=== PATIENT | female | born 1950 | race Caucasian/White ===

== ENCOUNTER 2017-02-07 05:34 | Inpatient (IN) ==
[2017-02-07] MEDS ORDERED: VECURONIUM 10 MG VIAL IV STA (05:46)
[2017-02-07] MEDS ORDERED: ETOMIDATE 20 MG/10 ML VIAL IV STA (05:47)
[2017-02-07] MEDS ORDERED: SUCCINYLCHOLINE 200 MG/10 ML VIAL IV STA (05:47)
[2017-02-07] MEDS ORDERED: SODIUM CHLORIDE 0.9% 2,000 ML IV STA (05:51)
[2017-02-07 06:00] LABS: Basophils % 0.1 % (0.0-0.8); Hematocrit 27.2 VOL% (35.7-47.0); Hemoglobin 9.3 GM/DL (12.0-16.0); Immature Granulocytes % 0.6 %; Lymphocytes # 0.2 10*3/uL (1.4-4.0); Mean Corpuscular HGB Conc 34.2 GM/DL (32-36); Mean Corpuscular Hemoglobin 29 PG (27-34); Mean Corpuscular Volume 84.2 FL (87-102); Mean Platelet Volume 10.6 FL (9.6-12.0); Monocytes # 0.6 10*3/uL (0.11-0.8); Monocytes % 3.7 % (1.7-12.7); Neutrophils # 15.7 10*3/uL (1.4-7.4); Neutrophils % 94.6 % (38.7-73.9); Platelet Count 455 T/CUMM (130-400); Red Blood Count 3.23 MC/CUMM (3.8-5.5); Red Cell Distribution Width 14.8 % (9.3-17.3); White Blood Count 16.5 T/CUMM (4-12)
[2017-02-07] MEDS ORDERED: SODIUM CHLORIDE 0.9% 1,000 ML IV STA (06:09)
[2017-02-07] MEDS ORDERED: NOREPINEPHRINE 4 MG/4 ML VIAL IV ONE (06:14)
[2017-02-07] MEDS ORDERED: EPINEPHrine 1 MG/10 ML SYRINGE ONE (06:14)
[2017-02-07 06:23] LABS: Lactic Acid 3.8 MMOL/L (0.4-2.0)
[2017-02-07 06:24] LABS: Alanine Aminotransferase 22 U/L (13-56); Albumin 3.1 G/DL (3.4-5.0); Alkaline Phosphatase 66 U/L (45-117); Aspartate Amino Transferase 29 U/L (0-37); Bilirubin,Total < 0.39 MG/DL (0.2-1.0); Glucose 164 MG/DL (74-106); Osmolality,Calculated 344.7 MOS/KG (273-304); Sodium 131 MMOL/L (136-145)
[2017-02-07 06:26] LABS: Band Neutrophils 3 % (0-10); Lymphocytes 1 % (20-55); Segmented Neutrophils 92 % (50-85); Total Cells Counted 100
[2017-02-07] MEDS ORDERED: EPINEPHrine 1 MG/10 ML SYRINGE IV STA (06:28)
[2017-02-07 06:29] LABS: Blood Urea Nitrogen 234 MG/DL (7-18)
[2017-02-07] MEDS ORDERED: MAGNESIUM SULFATE 1 GM/2 ML VIAL IV ONE (06:29)
[2017-02-07] MEDS ORDERED: AMIODARONE 150 MG/3 ML VIAL IV STA (06:29)
[2017-02-07] MEDS ORDERED: PIPERACILLIN/TAZOBACTAM 3,375 MG in SODIUM CHLORIDE 0.9% 100 ML IV STA (06:29)
[2017-02-07] MEDS ORDERED: INSULIN REGULAR 100 UNIT/ML ONE (06:30)
[2017-02-07] MEDS ORDERED: DEXTROSE 50% 25 GM/50 ML VIAL IV STA (06:30)
[2017-02-07] MEDS ORDERED: ALBUTEROL 2.5 MG/3 ML NEB RESP TX STA (06:30)
[2017-02-07] MEDS ORDERED: SODIUM BICARBONATE 50 MEQ/50 ML VIAL IV STA ×2 (06:30→07:07)
[2017-02-07] MEDS ORDERED: CALCIUM CHLORIDE 1,000 MG/10 ML SYRINGE IV STA (06:31)
[2017-02-07] MEDS ORDERED: ETOMIDATE 20 MG/10 ML VIAL IV ONE (06:36)
[2017-02-07] MEDS ORDERED: VECURONIUM 10 MG VIAL IV ONE (06:37)
[2017-02-07] MEDS ORDERED: INSULIN REGULAR 100 UNIT/ML IV STA (06:37)
[2017-02-07] MEDS ORDERED: SUCCINYLCHOLINE 200 MG/10 ML VIAL ONE (06:38)
[2017-02-07 06:48] LABS: Amorphous Crystals,Urine Occasional /HPF (Few); Apearance,Urine CLOUDY (Clear); Bacteria,Urine Few /HPF (Few); Bilirubin,Urine Negative (Negative); Blood, Urine Small mg/dL (Negative); Glucose,Urine (UA) 50 mg/dL (Negative); Ketones,Urine 5 mg/dL (Negative); Mucus,Urine Occasional /LPF (Occasional); Nitrite,Urine Negative (Negative); Protein,Urine 30 MG/DL; RBC,Urine 6 /HPF (0-4); Squamous Epithelial Cell,Urine Few /HPF (0-10); Urine Specific Gravity 1.018 (1.001-1.035); Urine Urobilinogen < 2.0 EU/DL (0.2-1.0); WBC,Urine 5 /HPF (0-6)
[2017-02-07 06:49] LABS: Urine Color Dark yellow (Yellow)
[2017-02-07 06:55] LABS: ABG Base Excess -24.1 MMOL/L (-2.5-2.5); ABG HCO3 6.6 MMOL/L (20-26); ABG Oxygen Saturation 79.3 % (95-100); ABG PCO2 37.1 MM HG (35-48); ABG PO2 68.6 MM HG (80-95); ABG TCO2 7.4 MMOL/L (23-27)
[2017-02-07] MEDS ORDERED: PIPERACILLIN/TAZOBACTAM 3,375 MG VIAL IV ONE (06:55)
[2017-02-07 06:58] LABS: ABG PH 6.886 (7.35-7.45)
[2017-02-07] MEDS ORDERED: SODIUM BICARBONATE 50 MEQ/50 ML SYRINGE IV ONE ×3 (07:09→16:46)
[2017-02-07] MEDS ORDERED: SODIUM BICARB IV SCH (07:15)
[2017-02-07] MEDS ORDERED: DEXTROSE 5% IV SCH (07:15)
[2017-02-07] MEDS ORDERED: ALBUTEROL 2.5 MG/3 ML NEB RESP TX PRN (08:02)
[2017-02-07] MEDS ORDERED: SODIUM POLYSTYRENE SULFATE 15 GM/60 ML BOTTLE RECTAL STA (08:19)
[2017-02-07] MEDS ORDERED: AMIODARONE INJ 150 MG in DEXTROSE 5% 100 ML IV ONE (08:43)
[2017-02-07] MEDS ORDERED: AMIODARONE INJ 450 MG in DEXTROSE 5% 241 ML IV SCH (09:00)
[2017-02-07] MEDS ORDERED: SODIUM POLYSTYRENE SULFATE 15 GM/60 ML BOTTLE ONE ×2 (09:19)
[2017-02-07 09:36] LABS: Magnesium 1.9 MG/DL (1.8-2.4)
[2017-02-07] MEDS ORDERED: PANTOPRAZOLE 40 MG VIAL IV ONE (09:50)
[2017-02-07] MEDS: PANTOPRAZOLE 40 MG VIAL IV SCH (09:54)
[2017-02-07 09:57] LABS: Free T4 (Free Thyroxine) 0.91 NG/DL (0.76-1.46); Thyroid Stimulating Hormone 0.685 uIU/ml (0.358-3.74)
[2017-02-07] MEDS: NOREPINEPHRINE 16 MG in SODIUM CHLORIDE 0.9% 234 ML IV SCH ×3 (10:21→21:21)
[2017-02-07 10:24] LABS: Calcium 7.9 MG/DL (8.5-10.1); Magnesium 2.6 MG/DL (1.8-2.4); Osmolality,Calculated 356.7 MOS/KG (273-304); Potassium 3.7 MMOL/L (3.5-5.1)
[2017-02-07 10:31] LABS: ABG Base Excess -18.7 MMOL/L (-2.5-2.5); ABG HCO3 10.2 MMOL/L (20-26); ABG Oxygen Saturation 99.5 % (95-100); ABG PCO2 29.6 MM HG (35-48); ABG TCO2 9.3 MMOL/L (23-27)
[2017-02-07 10:34] LABS: ABG PH 7.113 (7.35-7.45)
[2017-02-07] MEDS: ALBUTEROL/IPRATROPIUM 3 ML NEB RESP TX SCH ×4 (10:35→23:53)
[2017-02-07] MEDS: SODIUM CHLORIDE 23.4% CONC INJ 38.5 MEQ, SODIUM BICARB INJ 100 MEQ in STERILE WATER INJ... IV SCH ×3 (11:19→19:04)
[2017-02-07 12:20] LABS: Lactic Acid 2.8 MMOL/L (0.4-2.0)
[2017-02-07 12:23] LABS: Calcium 7.7 MG/DL (8.5-10.1); Magnesium 2.6 MG/DL (1.8-2.4); Osmolality,Calculated 362.8 MOS/KG (273-304); Potassium 3.7 MMOL/L (3.5-5.1)
[2017-02-07 13:17] LABS: Calcium 7.7 MG/DL (8.5-10.1); Potassium 3.7 MMOL/L (3.5-5.1)
[2017-02-07] MEDS: PHENYLEPHRINE INJ 80 MG in SODIUM CHLORIDE 0.9% 242 ML IV SCH (13:17)
[2017-02-07 13:23] LABS: ABG Base Excess -19.1 MMOL/L (-2.5-2.5); ABG Oxygen Saturation 96.3 % (95-100); ABG PCO2 39.4 MM HG (35-48); ABG TCO2 10.5 MMOL/L (23-27)
[2017-02-07 13:28] LABS: ABG PH 7.033 (7.35-7.45)
[2017-02-07] MEDS: FAMOTIDINE 20 MG/2 ML VIAL IV SCH (13:38)
[2017-02-07] MEDS: LACTULOSE 20 GM/30 ML UDCUP PO SCH (13:38)
[2017-02-07] MEDS: THIAMINE 200 MG/2 ML VIAL IV SCH (13:38)
[2017-02-07] MEDS: FLUCONAZOLE INJ 200 MG in PREMIX 1 EACH IV SCH (13:40)
[2017-02-07 15:23] LABS: Hepatitis A Ab IgM Quant 0.16 Index; Hepatitis A Ab IgM Result Negative (Negative); Hepatitis B Core IgM Result Negative (Negative); Hepatitis B Surface Ag Quant < 0.10 Index; Hepatitis B Surface Ag Result Negative (Negative); Hepatitis C Virus Ab Quant 1.45 Index
[2017-02-07] MEDS: AMIODARONE INJ 450 MG in DEXTROSE 5% 241 ML IV SCH (16:05)
[2017-02-07] MEDS ORDERED: DEXTROSE 50% 25 GM/50 ML VIAL IV PRN (16:06)
[2017-02-07] MEDS ORDERED: GLUCAGON 1 MG VIAL IM PRN (16:06)
[2017-02-07] MEDS: PROPOFOL 1,000 MG/100 ML BOTTLE IV SCH (16:42)
[2017-02-07] MEDS ORDERED: SODIUM CHLORIDE 0.9% 1,000 ML IV PRN (16:44)
[2017-02-07] MEDS ORDERED: INSULIN REGULAR 100 UNIT/ML IV ONE (16:48)
[2017-02-07] MEDS ORDERED: SODIUM CHLORIDE 0.9% 1,000 ML IV ONE (16:49)
[2017-02-07] MEDS ORDERED: MAGNESIUM SULF RIDER 2 GM in PREMIX 1 EACH IV PRN (16:57)
[2017-02-07] MEDS ORDERED: INSULIN REGULAR DRIP 100 ML IV SCH (17:00)
[2017-02-07] MEDS: FOLIC ACID INJ 1 MG in SYRINGE 1 EACH IV SCH (17:11)
[2017-02-07 17:27] LABS: ABG Base Excess -11.4 MMOL/L (-2.5-2.5); ABG HCO3 16.5 MMOL/L (20-26); ABG Oxygen Saturation 92.5 % (95-100); ABG PO2 83.1 MM HG (80-95)
[2017-02-07 17:29] LABS: ABG PH 7.164 (7.35-7.45)
[2017-02-07] MEDS ORDERED: INSULIN REGULAR 100 UNIT/ML SUBCUT SCH (18:00)
[2017-02-07] MEDS: SODIUM CHLORIDE 0.9% 1,000 ML IV SCH ×3 (18:30→23:04)
[2017-02-07] MEDS ORDERED: SODIUM CHLORIDE 0.9% 500 ML IV ONE (18:30)
[2017-02-07] MEDS: PIPERACILLIN/TAZOBACTAM 3,375 MG in SODIUM CHLORIDE 0.9% 100 ML IV SCH ×2 (18:34→22:45)
[2017-02-07 20:47] LABS: Calcium 6.7 MG/DL (8.5-10.1)
[2017-02-07 20:54] LABS: Magnesium 2.1 MG/DL (1.8-2.4)
[2017-02-07] MEDS ORDERED: OSELTAMIVIR 30 MG CAPSULE PO SCH (23:00)
[2017-02-07] MEDS: OSELTAMIVIR 6 MG/ML 60 ML/BOTTLE PO SCH (23:01)
[2017-02-07] MEDS ORDERED: POTASSIUM CHLORIDE RIDER 10 MEQ in PREMIX 1 EACH IV PRN (23:17)
[2017-02-08 00:24] LABS: ABG Base Excess -10.8 MMOL/L (-2.5-2.5); ABG HCO3 18.7 MMOL/L (20-26); ABG Oxygen Saturation 78.1 % (95-100); ABG PCO2 65.5 MM HG (35-48); ABG TCO2 20.7 MMOL/L (23-27); Allen Test Positive; Pt O2 Delivery Device Ventilator
[2017-02-08 00:26] LABS: Barbiturates Screen,Urine Negative (Negative); Benzodiazepines Screen,Urine Negative (Negative); Cannabinoid Screen,Urine Negative (Negative); Opiate Screen,Urine Negative (Negative); Phencyclidine Screen,Urine Negative (Negative)
[2017-02-08 00:30] LABS: ABG PH 7.105 (7.35-7.45)
[2017-02-08] MEDS: OSELTAMIVIR 6 MG/ML 60 ML/BOTTLE PO SCH ×4 (01:04→21:24)
[2017-02-08] MEDS: LACTULOSE 20 GM/30 ML UDCUP PO SCH ×3 (01:04→20:29)
[2017-02-08 02:14] LABS: Osmolality,Calculated 349.4 MOS/KG (273-304); Potassium 2.6 MMOL/L (3.5-5.1)
[2017-02-08] MEDS: POTASSIUM CHLORIDE RIDER 20 MEQ in PREMIX 1 EACH IV PRN ×3 (02:18→10:35)
[2017-02-08] MEDS: PROPOFOL 1,000 MG/100 ML BOTTLE IV SCH ×3 (02:18→23:18)
[2017-02-08 02:23] LABS: Calcium 5.8 MG/DL (8.5-10.1)
[2017-02-08] MEDS: ALBUTEROL/IPRATROPIUM 3 ML NEB RESP TX SCH ×6 (02:39→22:22)
[2017-02-08] MEDS: SODIUM CHLORIDE 23.4% CONC INJ 38.5 MEQ, SODIUM BICARB INJ 100 MEQ in STERILE WATER INJ... IV SCH ×3 (02:46→08:13)
[2017-02-08] MEDS: SODIUM CHLORIDE 0.9% 1,000 ML IV SCH (03:09)
[2017-02-08] MEDS ORDERED: CALCIUM GLUCONATE 2,000 MG in SODIUM CHLORIDE 0.9% 100 ML IV ONE (03:15)
[2017-02-08] MEDS ORDERED: POTASSIUM CHLORIDE INJ 40 MEQ in SODIUM CHLORIDE 0.45% 1,000 ML IV SCH (03:30)
[2017-02-08] MEDS: NOREPINEPHRINE 16 MG in SODIUM CHLORIDE 0.9% 234 ML IV SCH ×4 (03:39→23:48)
[2017-02-08 04:12] LABS: ABG Base Excess -5.5 MMOL/L (-2.5-2.5); ABG HCO3 22.5 MMOL/L (20-26); ABG Oxygen Saturation 42.2 % (95-100); ABG PH 7.222 (7.35-7.45); ABG TCO2 24.2 MMOL/L (23-27)
[2017-02-08 04:22] LABS: ABG PO2 22.8 MM HG (80-95)
[2017-02-08] MEDS ORDERED: TERBUTALINE 1 MG/1 ML VIAL SUBCUT ONE (04:24)
[2017-02-08 04:34] LABS: ABG Base Excess -4.6 MMOL/L (-2.5-2.5); ABG HCO3 20.6 MMOL/L (20-26); ABG Oxygen Saturation 99.1 % (95-100); ABG PCO2 40.2 MM HG (35-48); ABG PH 7.328 (7.35-7.45); ABG TCO2 19.1 MMOL/L (23-27)
[2017-02-08 05:29] LABS: INR 1.5; PT Patient Result 15.6 SECS; Partial Thromboplastin Time 39.4 SECS (0-40)
[2017-02-08 05:46] LABS: Basophils % 0.2 % (0.0-0.8); Hematocrit 29.9 VOL% (35.7-47.0); Immature Granulocytes % 0.5 %; Immature Granulocytes Absolute 0.06 #; Lymphocytes # 0.1 10*3/uL (1.4-4.0); Lymphocytes % 0.8 % (21.3-54.2); Mean Corpuscular HGB Conc 35.8 GM/DL (32-36); Mean Corpuscular Hemoglobin 29 PG (27-34); Mean Platelet Volume 11.1 FL (9.6-12.0); Monocytes # 0.7 10*3/uL (0.11-0.8); Monocytes % 5.4 % (1.7-12.7); Neutrophils # 12.4 10*3/uL (1.4-7.4); Neutrophils % 93.1 % (38.7-73.9); Red Blood Count 3.69 MC/CUMM (3.8-5.5); Red Cell Distribution Width 15.3 % (9.3-17.3); White Blood Count 13.3 T/CUMM (4-12)
[2017-02-08 05:50] LABS: Hepatitis C Virus Ab Result Positive (Negative)
[2017-02-08 05:55] LABS: Hemoglobin 10.7 GM/DL (12.0-16.0); Platelet Count 283 T/CUMM (130-400)
[2017-02-08 05:56] LABS: Magnesium 1.4 MG/DL (1.8-2.4); Phosphorous 4.9 MG/DL (2.5-4.9)
[2017-02-08 06:37] LABS: Giant Platelets Few; Hypochromasia 1+; Lymphocytes 1 % (20-55); Ovalocytes Slight; Platelet Estimate Normal; Segmented Neutrophils 93 % (50-85); Total Cells Counted 100
[2017-02-08 06:55] LABS: HIV Antigen/Antibody Result Nonreactive (Nonreactive); Hepatitis B Surface Ag Quant < 0.10 Index; Hepatitis B Surface Ag Result Negative (Negative); Hepatitis C Virus Ab Quant 1.81 Index
[2017-02-08] MEDS: DEXT 5% NACL 0.45% KCL 40 MEQ 40 MEQ/1,000 ML BAG IV SCH ×2 (07:29→09:01)
[2017-02-08] MEDS: AMIODARONE INJ 450 MG in DEXTROSE 5% 241 ML IV SCH (08:12)
[2017-02-08] MEDS: PIPERACILLIN/TAZOBACTAM 3,375 MG in SODIUM CHLORIDE 0.9% 100 ML IV SCH ×2 (08:13→20:29)
[2017-02-08] MEDS: PANTOPRAZOLE 40 MG VIAL IV SCH (08:13)
[2017-02-08] MEDS: THIAMINE 200 MG/2 ML VIAL IV SCH (08:14)
[2017-02-08] MEDS: FOLIC ACID INJ 1 MG in SYRINGE 1 EACH IV SCH (08:14)
[2017-02-08 08:37] LABS: Calcium 6.6 MG/DL (8.5-10.1); Osmolality,Calculated 333.7 MOS/KG (273-304); Potassium 3.2 MMOL/L (3.5-5.1)
[2017-02-08] MEDS: MAGNESIUM SULF RIDER 4 GM in PREMIX 1 EACH IV PRN (09:30)
[2017-02-08] MEDS ORDERED: NOREPINEPHRINE 4 MG/4 ML VIAL IV ONE (09:59)
[2017-02-08] MEDS ORDERED: SODIUM CHLORIDE 23.4% CONC INJ 38.5 MEQ, SODIUM BICARB INJ 50 MEQ in STERILE WATER INJ ... IV SCH (11:00)
[2017-02-08 11:17] LABS: Calcium 6.4 MG/DL (8.5-10.1); Osmolality,Calculated 331.6 MOS/KG (273-304); Potassium 3.8 MMOL/L (3.5-5.1)
[2017-02-08 11:57] LABS: Allen Test Positive; Pt O2 Delivery Device Ventilator
[2017-02-08 12:01] LABS: ABG Base Excess -2.7 MMOL/L (-2.5-2.5); ABG HCO3 22.2 MMOL/L (20-26); ABG Oxygen Saturation 99.5 % (95-100); ABG PCO2 34.2 MM HG (35-48); ABG PH 7.405 (7.35-7.45); ABG TCO2 19.3 MMOL/L (23-27)
[2017-02-08] MEDS: INSULIN GLARGINE 100 UNIT/ML SUBCUT SCH (12:17)
[2017-02-08 12:53] LABS: Lactic Acid 2.1 MMOL/L (0.4-2.0)
[2017-02-08] MEDS ORDERED: FUROSEMIDE 40 MG/4 ML VIAL IV ONE (13:00)
[2017-02-08] MEDS: DESITIN 4OZ/NYSTATIN 15 GRAM MIXTURE PASTE TOP SCH ×2 (13:10→20:29)
[2017-02-08] MEDS: INSULIN REGULAR 100 UNIT/ML SUBCUT SCH ×2 (13:10→18:16)
[2017-02-08] MEDS: FAMOTIDINE 20 MG/2 ML VIAL IV SCH (13:10)
[2017-02-08] MEDS: PHENYLEPHRINE INJ 80 MG in SODIUM CHLORIDE 0.9% 242 ML IV SCH (13:10)
[2017-02-08] MEDS: FLUCONAZOLE INJ 200 MG in PREMIX 1 EACH IV SCH (15:56)
[2017-02-08 16:30] LABS: Calcium 6.5 MG/DL (8.5-10.1); Osmolality,Calculated 326.7 MOS/KG (273-304); Potassium 3.6 MMOL/L (3.5-5.1)
[2017-02-08 16:31] LABS: Magnesium 2.1 MG/DL (1.8-2.4); Phosphorous 3.4 MG/DL (2.5-4.9)
[2017-02-08] MEDS ORDERED: OSELTAMIVIR 30 MG CAPSULE PEG ONE (21:27)
[2017-02-09] MEDS: INSULIN REGULAR 100 UNIT/ML SUBCUT SCH ×4 (00:02→17:13)
[2017-02-09] MEDS: ACETAMINOPHEN 325 MG/10.15 ML UDCUP PO PRN (00:17)
[2017-02-09] MEDS: AMIODARONE INJ 450 MG in DEXTROSE 5% 241 ML IV SCH ×4 (00:18→15:33)
[2017-02-09] MEDS: PHENYLEPHRINE INJ 80 MG in SODIUM CHLORIDE 0.9% 242 ML IV SCH ×2 (01:16→12:53)
[2017-02-09 03:10] LABS: Basophils % 0.1 % (0.0-0.8); Eosinophils % 0.1 % (0.00-10.9); Hematocrit 30.7 VOL% (35.7-47.0); Hemoglobin 11.5 GM/DL (12.0-16.0); Immature Granulocytes % 0.5 %; Immature Granulocytes Absolute 0.09 #; Lymphocytes # 0.7 10*3/uL (1.4-4.0); Lymphocytes % 4.2 % (21.3-54.2); Mean Corpuscular HGB Conc 37.5 GM/DL (32-36); Mean Corpuscular Hemoglobin 30 PG (27-34); Mean Corpuscular Volume 80.6 FL (87-102); Mean Platelet Volume 10.3 FL (9.6-12.0); Monocytes # 2.2 10*3/uL (0.11-0.8); Monocytes % 12.6 % (1.7-12.7); NRBC # 0.03 10*3/uL; Neutrophils # 14.1 10*3/uL (1.4-7.4); Neutrophils % 82.5 % (38.7-73.9); Platelet Count 248 T/CUMM (130-400); Red Blood Count 3.81 MC/CUMM (3.8-5.5); Red Cell Distribution Width 14.9 % (9.3-17.3); White Blood Count 17.1 T/CUMM (4-12)
[2017-02-09 03:35] LABS: Calcium 6.5 MG/DL (8.5-10.1); Osmolality,Calculated 322.7 MOS/KG (273-304); Potassium 3.4 MMOL/L (3.5-5.1)
[2017-02-09 03:36] LABS: Magnesium 1.6 MG/DL (1.8-2.4); Phosphorous 3.4 MG/DL (2.5-4.9)
[2017-02-09] MEDS: ALBUTEROL/IPRATROPIUM 3 ML NEB RESP TX SCH ×6 (03:49→22:18)
[2017-02-09 03:50] LABS: CKMB % 1.1 %
[2017-02-09 03:52] LABS: Troponin I Only 3.81 NG/ML (0.00-0.045)
[2017-02-09 04:02] LABS: Lymphocytes 10 % (20-55); Platelet Estimate Normal; Segmented Neutrophils 87 % (50-85); Total Cells Counted 100
[2017-02-09] MEDS ORDERED: POTASSIUM CHLORIDE 20 MEQ/15 ML UDCUP PER TUBE SCH (04:30)
[2017-02-09] MEDS: PROPOFOL 1,000 MG/100 ML BOTTLE IV SCH ×4 (05:52→20:58)
[2017-02-09] MEDS: NOREPINEPHRINE 16 MG in SODIUM CHLORIDE 0.9% 234 ML IV SCH ×2 (06:02→16:17)
[2017-02-09 06:44] LABS: ABG Base Excess 1.9 MMOL/L (-2.5-2.5); ABG HCO3 26.1 MMOL/L (20-26); ABG Oxygen Saturation 99.4 % (95-100); ABG PCO2 28.6 MM HG (35-48); ABG PH 7.527 (7.35-7.45); ABG TCO2 20.9 MMOL/L (23-27); Allen Test Positive; Pt O2 Delivery Device Ventilator
[2017-02-09 08:23] LABS: Troponin I Only 3.86 NG/ML (0.00-0.045)
[2017-02-09 09:54] LABS: CKMB % 0.7 %
[2017-02-09 09:56] LABS: Troponin I Only 3.61 NG/ML (0.00-0.045)
[2017-02-09] MEDS: FOLIC ACID INJ 1 MG in SYRINGE 1 EACH IV SCH (12:49)
[2017-02-09] MEDS: LACTULOSE 20 GM/30 ML UDCUP PO SCH ×2 (12:49→20:57)
[2017-02-09] MEDS: THIAMINE 200 MG/2 ML VIAL IV SCH (12:49)
[2017-02-09] MEDS: OSELTAMIVIR 6 MG/ML 60 ML/BOTTLE PO SCH ×2 (12:49→22:44)
[2017-02-09] MEDS: DESITIN 4OZ/NYSTATIN 15 GRAM MIXTURE PASTE TOP SCH ×2 (12:49→20:57)
[2017-02-09] MEDS: PIPERACILLIN/TAZOBACTAM 3,375 MG in SODIUM CHLORIDE 0.9% 100 ML IV SCH ×2 (12:49→20:59)
[2017-02-09] MEDS: PANTOPRAZOLE 40 MG VIAL IV SCH (12:49)
[2017-02-09] MEDS: INSULIN GLARGINE 100 UNIT/ML SUBCUT SCH (12:49)
[2017-02-09] MEDS: FAMOTIDINE 20 MG/2 ML VIAL IV SCH (12:53)
[2017-02-09] MEDS ORDERED: POTASSIUM CHLORIDE 20 MEQ TABLET PO ONE (14:31)
[2017-02-09] MEDS: FLUCONAZOLE INJ 200 MG in PREMIX 1 EACH IV SCH (16:15)
[2017-02-09] MEDS: FUROSEMIDE 20 MG/2 ML VIAL IV SCH (16:16)
[2017-02-09] MEDS ORDERED: ENOXAPARIN 30 MG/0.3 ML SYRINGE SUBCUT SCH (21:00)
[2017-02-10] MEDS: INSULIN REGULAR 100 UNIT/ML SUBCUT SCH ×4 (00:09→18:44)
[2017-02-10] MEDS: NOREPINEPHRINE 16 MG in SODIUM CHLORIDE 0.9% 234 ML IV SCH ×3 (00:20→13:55)
[2017-02-10] MEDS: OSELTAMIVIR 30 MG CAPSULE PO SCH ×3 (00:40→22:37)
[2017-02-10 02:52] LABS: ABG Base Excess 6.2 MMOL/L (-2.5-2.5); ABG HCO3 27.6 MMOL/L (20-26); ABG PCO2 29.4 MM HG (35-48); ABG PH 7.591 (7.35-7.45); ABG TCO2 28.5 MMOL/L (23-27); Pt O2 Delivery Device Ventilator
[2017-02-10] MEDS: PROPOFOL 1,000 MG/100 ML BOTTLE IV SCH ×4 (03:22→18:57)
[2017-02-10 03:41] LABS: Calcium 7.5 MG/DL (8.5-10.1); Osmolality,Calculated 320.1 MOS/KG (273-304); Potassium 3.6 MMOL/L (3.5-5.1)
[2017-02-10 03:53] LABS: Basophils # 0.1 10*3/uL (0.0-0.2); Basophils % 0.3 % (0.0-0.8); Eosinophils # 0.2 10*3/uL (0.0-0.87); Eosinophils % 1.1 % (0.00-10.9); Hematocrit 29.4 VOL% (35.7-47.0); Hemoglobin 10.5 GM/DL (12.0-16.0); Immature Granulocytes Absolute 0.16 #; Lymphocytes # 1.2 10*3/uL (1.4-4.0); Lymphocytes % 7.9 % (21.3-54.2); Mean Corpuscular HGB Conc 35.7 GM/DL (32-36); Mean Corpuscular Hemoglobin 30 PG (27-34); Mean Corpuscular Volume 83.1 FL (87-102); Monocytes # 1.5 10*3/uL (0.11-0.8); Monocytes % 9.8 % (1.7-12.7); NRBC # 0.02 10*3/uL; Neutrophils # 12.2 10*3/uL (1.4-7.4); Neutrophils % 79.9 % (38.7-73.9); Platelet Count 220 T/CUMM (130-400); Red Blood Count 3.54 MC/CUMM (3.8-5.5); Red Cell Distribution Width 15.1 % (9.3-17.3); White Blood Count 15.3 T/CUMM (4-12)
[2017-02-10] MEDS: ALBUTEROL/IPRATROPIUM 3 ML NEB RESP TX SCH ×5 (04:12→19:57)
[2017-02-10] MEDS: AMIODARONE INJ 450 MG in DEXTROSE 5% 241 ML IV SCH ×2 (04:20→21:35)
[2017-02-10] MEDS: FUROSEMIDE 20 MG/2 ML VIAL IV SCH ×2 (10:07→16:33)
[2017-02-10] MEDS: INSULIN GLARGINE 100 UNIT/ML SUBCUT SCH (10:12)
[2017-02-10] MEDS: PANTOPRAZOLE 40 MG VIAL IV SCH (10:13)
[2017-02-10] MEDS: DESITIN 4OZ/NYSTATIN 15 GRAM MIXTURE PASTE TOP SCH ×2 (10:16→22:37)
[2017-02-10] MEDS: FOLIC ACID INJ 1 MG in SYRINGE 1 EACH IV SCH (10:20)
[2017-02-10] MEDS: LACTULOSE 20 GM/30 ML UDCUP PO SCH ×2 (10:26→21:47)
[2017-02-10] MEDS ORDERED: DEXTROSE 5% 1,000 ML IV SCH (10:30)
[2017-02-10] MEDS ORDERED: DEXTROSE 5% NACL 0.22% 1,000 ML IV SCH (10:30)
[2017-02-10] MEDS: THIAMINE 200 MG/2 ML VIAL IV SCH (10:43)
[2017-02-10] MEDS: PIPERACILLIN/TAZOBACTAM 3,375 MG in SODIUM CHLORIDE 0.9% 100 ML IV SCH ×2 (10:55→21:47)
[2017-02-10] MEDS: ACETAMINOPHEN 325 MG/10.15 ML UDCUP PO PRN (13:44)
[2017-02-10] MEDS: FAMOTIDINE 20 MG/2 ML VIAL IV SCH (14:59)
[2017-02-10] MEDS: FLUCONAZOLE INJ 200 MG in PREMIX 1 EACH IV SCH (15:01)
[2017-02-10] MEDS: HEPARIN DRIP 25,000 UNITS/500 ML PREMIX IV SCH (17:28)
[2017-02-11] MEDS: ALBUTEROL/IPRATROPIUM 3 ML NEB RESP TX SCH ×6 (00:40→20:43)
[2017-02-11] MEDS: INSULIN REGULAR 100 UNIT/ML SUBCUT SCH ×4 (01:39→19:04)
[2017-02-11 03:45] LABS: ABG Base Excess 5.1 MMOL/L (-2.5-2.5); ABG HCO3 28.9 MMOL/L (20-26); ABG Oxygen Saturation 91.4 % (95-100); ABG PH 7.511 (7.35-7.45); ABG PO2 59.1 MM HG (80-95); ABG TCO2 24.8 MMOL/L (23-27); Allen Test Positive; Pt O2 Delivery Device Ventilator
[2017-02-11] MEDS: PROPOFOL 1,000 MG/100 ML BOTTLE IV SCH ×4 (04:54→22:09)
[2017-02-11 05:47] LABS: Basophils # 0.1 10*3/uL (0.0-0.2); Basophils % 0.3 % (0.0-0.8); Eosinophils # 0.4 10*3/uL (0.0-0.87); Eosinophils % 2.4 % (0.00-10.9); Hematocrit 29.1 VOL% (35.7-47.0); Hemoglobin 9.9 GM/DL (12.0-16.0); Immature Granulocytes Absolute 0.17 #; Lymphocytes # 1.4 10*3/uL (1.4-4.0); Lymphocytes % 8.4 % (21.3-54.2); Mean Corpuscular Hemoglobin 30 PG (27-34); Mean Corpuscular Volume 87.1 FL (87-102); Mean Platelet Volume 10.8 FL (9.6-12.0); Monocytes # 1.5 10*3/uL (0.11-0.8); Monocytes % 8.5 % (1.7-12.7); NRBC # 0.02 10*3/uL; Neutrophils # 13.5 10*3/uL (1.4-7.4); Neutrophils % 79.4 % (38.7-73.9); Platelet Count 197 T/CUMM (130-400); Red Blood Count 3.34 MC/CUMM (3.8-5.5); Red Cell Distribution Width 15.2 % (9.3-17.3)
[2017-02-11 06:09] LABS: Lactic Acid 2.2 MMOL/L (0.4-2.0)
[2017-02-11 07:14] LABS: Alanine Aminotransferase 35 U/L (13-56); Albumin 1.9 G/DL (3.4-5.0); Alkaline Phosphatase 86 U/L (45-117); Aspartate Amino Transferase 47 U/L (0-37); Blood Urea Nitrogen 60 MG/DL (7-18); Calcium 7.6 MG/DL (8.5-10.1); Glucose 132 MG/DL (74-106); Osmolality,Calculated 317.9 MOS/KG (273-304); Potassium 3.1 MMOL/L (3.5-5.1); Sodium 151 MMOL/L (136-145)
[2017-02-11] MEDS: INSULIN GLARGINE 100 UNIT/ML SUBCUT SCH (09:29)
[2017-02-11] MEDS: NOREPINEPHRINE 16 MG in SODIUM CHLORIDE 0.9% 234 ML IV SCH ×2 (09:30→20:45)
[2017-02-11] MEDS: THIAMINE 200 MG/2 ML VIAL IV SCH (10:05)
[2017-02-11] MEDS: DEXT 5% NACL 0.2% KCL 20 MEQ 20 MEQ/1,000 ML BAG IV SCH ×2 (10:06→22:10)
[2017-02-11] MEDS: FOLIC ACID INJ 1 MG in SYRINGE 1 EACH IV SCH (10:06)
[2017-02-11] MEDS: PIPERACILLIN/TAZOBACTAM 3,375 MG in SODIUM CHLORIDE 0.9% 100 ML IV SCH ×2 (10:07→20:50)
[2017-02-11] MEDS: FUROSEMIDE 20 MG/2 ML VIAL IV SCH ×2 (10:07→17:14)
[2017-02-11] MEDS: LACTULOSE 20 GM/30 ML UDCUP PO SCH ×2 (10:09→21:30)
[2017-02-11] MEDS: PANTOPRAZOLE 40 MG VIAL IV SCH (10:19)
[2017-02-11] MEDS: AMIODARONE 200 MG TABLET PO SCH ×2 (13:51→21:30)
[2017-02-11] MEDS: OSELTAMIVIR 30 MG CAPSULE PO SCH ×2 (13:51→21:30)
[2017-02-11] MEDS: DESITIN 4OZ/NYSTATIN 15 GRAM MIXTURE PASTE TOP SCH ×2 (13:51→21:30)
[2017-02-11] MEDS: AMIODARONE INJ 450 MG in DEXTROSE 5% 241 ML IV SCH (14:26)
[2017-02-11] MEDS: FLUCONAZOLE INJ 200 MG in PREMIX 1 EACH IV SCH (14:30)
[2017-02-11] MEDS: HEPARIN DRIP 25,000 UNITS/500 ML PREMIX IV SCH (19:08)
[2017-02-12] MEDS: ALBUTEROL/IPRATROPIUM 3 ML NEB RESP TX SCH ×6 (00:42→19:48)
[2017-02-12] MEDS: INSULIN REGULAR 100 UNIT/ML SUBCUT SCH ×4 (01:43→18:53)
[2017-02-12 03:53] LABS: ABG Base Excess 7.6 MMOL/L (-2.5-2.5); ABG HCO3 31.4 MMOL/L (20-26); ABG Oxygen Saturation 98.7 % (95-100); ABG PCO2 38.7 MM HG (35-48); ABG PH 7.513 (7.35-7.45); ABG TCO2 26.7 MMOL/L (23-27); Allen Test Positive; Pt O2 Delivery Device Ventilator
[2017-02-12] MEDS: PROPOFOL 1,000 MG/100 ML BOTTLE IV SCH ×2 (04:05→10:16)
[2017-02-12 04:27] LABS: Basophils # 0.1 10*3/uL (0.0-0.2); Basophils % 0.4 % (0.0-0.8); Hemoglobin 9.3 GM/DL (12.0-16.0); Immature Granulocytes % 0.8 %; Immature Granulocytes Absolute 0.11 #; Lymphocytes # 1.2 10*3/uL (1.4-4.0); Lymphocytes % 8.9 % (21.3-54.2); Mean Corpuscular HGB Conc 33.2 GM/DL (32-36); Mean Corpuscular Hemoglobin 30 PG (27-34); Mean Corpuscular Volume 89.2 FL (87-102); Mean Platelet Volume 10.7 FL (9.6-12.0); Monocytes # 1.3 10*3/uL (0.11-0.8); Monocytes % 8.9 % (1.7-12.7); Neutrophils # 10.4 10*3/uL (1.4-7.4); Platelet Count 187 T/CUMM (130-400); Red Blood Count 3.14 MC/CUMM (3.8-5.5); Red Cell Distribution Width 15.3 % (9.3-17.3)
[2017-02-12 05:29] LABS: Osmolality,Calculated 306.6 MOS/KG (273-304); Potassium 3.3 MMOL/L (3.5-5.1)
[2017-02-12 06:10] LABS: Magnesium 1.2 MG/DL (1.8-2.4); Phosphorous 2.9 MG/DL (2.5-4.9); Prealbumin 12.4 MG/DL (20-40)
[2017-02-12] MEDS: MAGNESIUM SULF RIDER 4 GM in PREMIX 1 EACH IV PRN (06:30)
[2017-02-12] MEDS: PANTOPRAZOLE 40 MG VIAL IV SCH (10:04)
[2017-02-12] MEDS: AMIODARONE 200 MG TABLET PO SCH ×2 (10:05→21:25)
[2017-02-12] MEDS: THIAMINE 200 MG/2 ML VIAL IV SCH (10:05)
[2017-02-12] MEDS: FUROSEMIDE 20 MG/2 ML VIAL IV SCH ×2 (10:05→16:33)
[2017-02-12] MEDS: FOLIC ACID INJ 1 MG in SYRINGE 1 EACH IV SCH (10:06)
[2017-02-12] MEDS: LACTULOSE 20 GM/30 ML UDCUP PO SCH ×2 (10:06→21:25)
[2017-02-12] MEDS: PIPERACILLIN/TAZOBACTAM 3,375 MG in SODIUM CHLORIDE 0.9% 100 ML IV SCH ×2 (10:08→21:25)
[2017-02-12] MEDS: OSELTAMIVIR 30 MG CAPSULE PO SCH ×2 (10:08→21:25)
[2017-02-12] MEDS: INSULIN GLARGINE 100 UNIT/ML SUBCUT SCH (10:09)
[2017-02-12] MEDS: DESITIN 4OZ/NYSTATIN 15 GRAM MIXTURE PASTE TOP SCH ×2 (10:13→21:25)
[2017-02-12] MEDS: DEXT 5% NACL 0.2% KCL 20 MEQ 20 MEQ/1,000 ML BAG IV SCH (10:57)
[2017-02-12] MEDS: FLUCONAZOLE INJ 200 MG in PREMIX 1 EACH IV SCH (13:41)
[2017-02-12] MEDS: HEPARIN DRIP 25,000 UNITS/500 ML PREMIX IV SCH (21:25)
[2017-02-12] MEDS: METOPROLOL TARTRATE 25 MG TABLET PO SCH (21:25)
[2017-02-13] MEDS: DEXT 5% NACL 0.2% KCL 20 MEQ 20 MEQ/1,000 ML BAG IV SCH ×2 (00:08→17:15)
[2017-02-13] MEDS: PROPOFOL 1,000 MG/100 ML BOTTLE IV SCH ×6 (00:11→22:31)
[2017-02-13] MEDS: ALBUTEROL/IPRATROPIUM 3 ML NEB RESP TX SCH ×6 (00:25→19:35)
[2017-02-13] MEDS: INSULIN REGULAR 100 UNIT/ML SUBCUT SCH ×4 (01:11→18:22)
[2017-02-13 03:49] LABS: ABG HCO3 28.9 MMOL/L (20-26); ABG Oxygen Saturation 99.3 % (95-100); ABG PH 7.469 (7.35-7.45); ABG TCO2 25.4 MMOL/L (23-27)
[2017-02-13 03:54] LABS: Basophils % 0.2 % (0.0-0.8); Eosinophils # 0.7 10*3/uL (0.0-0.87); Hematocrit 25.3 VOL% (35.7-47.0); Hemoglobin 8.1 GM/DL (12.0-16.0); Immature Granulocytes Absolute 0.15 #; Lymphocytes # 0.8 10*3/uL (1.4-4.0); Lymphocytes % 5.9 % (21.3-54.2); Mean Corpuscular Hemoglobin 29 PG (27-34); Mean Corpuscular Volume 90.4 FL (87-102); Mean Platelet Volume 11.2 FL (9.6-12.0); Monocytes # 1.4 10*3/uL (0.11-0.8); Monocytes % 9.9 % (1.7-12.7); Neutrophils # 11.2 10*3/uL (1.4-7.4); Platelet Count 187 T/CUMM (130-400); White Blood Count 14.3 T/CUMM (4-12)
[2017-02-13 04:22] LABS: Calcium 6.5 MG/DL (8.5-10.1); Osmolality,Calculated 289.5 MOS/KG (273-304); Potassium 3.3 MMOL/L (3.5-5.1)
[2017-02-13] MEDS: NOREPINEPHRINE 16 MG in SODIUM CHLORIDE 0.9% 234 ML IV SCH ×2 (08:03→20:00)
[2017-02-13] MEDS: PIPERACILLIN/TAZOBACTAM 3,375 MG in SODIUM CHLORIDE 0.9% 100 ML IV SCH ×2 (08:29→20:27)
[2017-02-13] MEDS ORDERED: SODIUM CHLORIDE 0.9% 1,000 ML IV PRN (08:57)
[2017-02-13] MEDS ORDERED: APIXABAN 5 MG TABLET PO SCH (11:00)
[2017-02-13] MEDS: LACTULOSE 20 GM/30 ML UDCUP PO SCH ×2 (13:28→20:27)
[2017-02-13] MEDS: FUROSEMIDE 20 MG/2 ML VIAL IV SCH ×2 (13:28→17:15)
[2017-02-13] MEDS: PANTOPRAZOLE 40 MG VIAL IV SCH (13:28)
[2017-02-13] MEDS: FOLIC ACID INJ 1 MG in SYRINGE 1 EACH IV SCH (13:29)
[2017-02-13] MEDS: OSELTAMIVIR 30 MG CAPSULE PO SCH ×2 (13:29→20:27)
[2017-02-13] MEDS: THIAMINE 200 MG/2 ML VIAL IV SCH (13:29)
[2017-02-13] MEDS: INSULIN GLARGINE 100 UNIT/ML SUBCUT SCH (13:29)
[2017-02-13] MEDS: AMIODARONE 200 MG TABLET PO SCH ×2 (13:29→20:27)
[2017-02-13] MEDS: METOPROLOL TARTRATE 25 MG TABLET PO SCH ×2 (13:30→21:54)
[2017-02-13] MEDS: POTASSIUM CHLORIDE 20 MEQ TABLET PO SCH ×2 (13:30→17:15)
[2017-02-13] MEDS: DESITIN 4OZ/NYSTATIN 15 GRAM MIXTURE PASTE TOP SCH ×2 (13:30→20:27)
[2017-02-13] MEDS: FLUCONAZOLE INJ 200 MG in PREMIX 1 EACH IV SCH (17:15)
[2017-02-13] MEDS: HEPARIN DRIP 25,000 UNITS/500 ML PREMIX IV SCH ×2 (18:22→22:29)
[2017-02-14] MEDS: ALBUTEROL/IPRATROPIUM 3 ML NEB RESP TX SCH ×7 (00:19→22:59)
[2017-02-14] MEDS: INSULIN REGULAR 100 UNIT/ML SUBCUT SCH ×4 (01:22→17:31)
[2017-02-14 03:21] LABS: ABG Base Excess 2.4 MMOL/L (-2.5-2.5); ABG HCO3 25.6 MMOL/L (20-26); ABG Oxygen Saturation 98.1 % (95-100); ABG PCO2 34.3 MM HG (35-48); ABG PO2 134.4 MM HG (80-95); ABG TCO2 26.6 MMOL/L (23-27); Allen Test Positive; Pt O2 Delivery Device Ventilator
[2017-02-14 06:00] LABS: Basophils % 0.2 % (0.0-0.8); Eosinophils # 0.5 10*3/uL (0.0-0.87); Eosinophils % 4.1 % (0.00-10.9); Hematocrit 28.3 VOL% (35.7-47.0); Hemoglobin 9.3 GM/DL (12.0-16.0); Immature Granulocytes % 2.2 %; Immature Granulocytes Absolute 0.27 #; Lymphocytes # 1.2 10*3/uL (1.4-4.0); Lymphocytes % 9.4 % (21.3-54.2); Mean Corpuscular HGB Conc 32.9 GM/DL (32-36); Mean Corpuscular Hemoglobin 30 PG (27-34); Mean Corpuscular Volume 90.1 FL (87-102); Mean Platelet Volume 11.8 FL (9.6-12.0); Monocytes # 1.3 10*3/uL (0.11-0.8); Monocytes % 10.7 % (1.7-12.7); Neutrophils # 9.1 10*3/uL (1.4-7.4); Neutrophils % 73.4 % (38.7-73.9); Platelet Count 202 T/CUMM (130-400); Red Blood Count 3.14 MC/CUMM (3.8-5.5); Red Cell Distribution Width 14.6 % (9.3-17.3); White Blood Count 12.4 T/CUMM (4-12)
[2017-02-14] MEDS: DEXT 5% NACL 0.2% KCL 20 MEQ 20 MEQ/1,000 ML BAG IV SCH ×3 (06:03→15:32)
[2017-02-14 06:13] LABS: Magnesium 1.3 MG/DL (1.8-2.4); Osmolality,Calculated 283.3 MOS/KG (273-304); Potassium 3.9 MMOL/L (3.5-5.1)
[2017-02-14] MEDS: NOREPINEPHRINE 16 MG in SODIUM CHLORIDE 0.9% 234 ML IV SCH (08:41)
[2017-02-14] MEDS: PROPOFOL 1,000 MG/100 ML BOTTLE IV SCH ×2 (09:00→12:52)
[2017-02-14] MEDS: DESITIN 4OZ/NYSTATIN 15 GRAM MIXTURE PASTE TOP SCH (11:00)
[2017-02-14] MEDS: METOPROLOL TARTRATE 25 MG TABLET PO SCH ×2 (11:00→20:29)
[2017-02-14] MEDS: INSULIN GLARGINE 100 UNIT/ML SUBCUT SCH (11:00)
[2017-02-14] MEDS ORDERED: PROPOFOL 200 MG/20 ML VIAL IV ONE (11:46)
[2017-02-14] MEDS ORDERED: LIDOCAINE 1% 5 ML VIAL ONE (11:46)
[2017-02-14] MEDS: PIPERACILLIN/TAZOBACTAM 3,375 MG in SODIUM CHLORIDE 0.9% 100 ML IV SCH ×2 (12:52→20:21)
[2017-02-14] MEDS: OSELTAMIVIR 30 MG CAPSULE PO SCH ×2 (12:52→20:21)
[2017-02-14] MEDS: PANTOPRAZOLE 40 MG VIAL IV SCH (12:52)
[2017-02-14] MEDS: THIAMINE 200 MG/2 ML VIAL IV SCH (12:52)
[2017-02-14] MEDS: LACTULOSE 20 GM/30 ML UDCUP PO SCH ×2 (12:52→20:21)
[2017-02-14] MEDS: FUROSEMIDE 20 MG/2 ML VIAL IV SCH ×2 (12:52→15:32)
[2017-02-14] MEDS: AMIODARONE 200 MG TABLET PO SCH ×2 (12:52→20:21)
[2017-02-14] MEDS: FOLIC ACID INJ 1 MG in SYRINGE 1 EACH IV SCH (12:52)
[2017-02-14] MEDS: MAGNESIUM SULF RIDER 4 GM in PREMIX 1 EACH IV PRN (12:53)
[2017-02-14 14:21] LABS: ABG Base Excess 0.1 MMOL/L (-2.5-2.5); ABG HCO3 23.4 MMOL/L (20-26); ABG Oxygen Saturation 97.9 % (95-100); ABG PCO2 32.9 MM HG (35-48); ABG PH 7.469 (7.35-7.45); ABG PO2 104.7 MM HG (80-95); ABG TCO2 24.4 MMOL/L (23-27); Allen Test Positive
[2017-02-14] MEDS ORDERED: ALBUTEROL/IPRATROPIUM 3 ML NEB RESP TX PRN (14:33)
[2017-02-14 15:48] LABS: ABG Base Excess -0.4 MMOL/L (-2.5-2.5); ABG Oxygen Saturation 98.7 % (95-100); ABG PCO2 38.2 MM HG (35-48); ABG PH 7.416 (7.35-7.45); ABG PO2 201.8 MM HG (80-95); ABG TCO2 25.2 MMOL/L (23-27); Allen Test Positive
[2017-02-14] MEDS: FLUCONAZOLE INJ 200 MG in PREMIX 1 EACH IV SCH (16:22)
[2017-02-14] MEDS ORDERED: RACEPINEPHRINE 0.5 ML NEB RESP TX PRN (17:33)
[2017-02-14] MEDS ORDERED: RACEPINEPHRINE 0.5 ML NEB RESP TX ONE (17:42)
[2017-02-14] MEDS: methylPREDNISolone SOD SUC 125 MG/2 ML VIAL IV SCH (17:43)
[2017-02-14] MEDS: APIXABAN 5 MG TABLET PO SCH (20:21)
[2017-02-15] MEDS: INSULIN REGULAR 100 UNIT/ML SUBCUT SCH ×4 (01:54→17:44)
[2017-02-15] MEDS: DESITIN 4OZ/NYSTATIN 15 GRAM MIXTURE PASTE TOP SCH ×3 (01:54→20:44)
[2017-02-15] MEDS: ALBUTEROL/IPRATROPIUM 3 ML NEB RESP TX SCH ×6 (02:37→23:03)
[2017-02-15 02:59] LABS: ABG Base Excess -0.1 MMOL/L (-2.5-2.5); ABG HCO3 24.4 MMOL/L (20-26); ABG Oxygen Saturation 99.4 % (95-100); ABG PCO2 38.1 MM HG (35-48); ABG PH 7.413 (7.35-7.45); ABG TCO2 22.2 MMOL/L (23-27)
[2017-02-15] MEDS: methylPREDNISolone SOD SUC 125 MG/2 ML VIAL IV SCH (06:13)
[2017-02-15] MEDS: NOREPINEPHRINE 16 MG in SODIUM CHLORIDE 0.9% 234 ML IV SCH (07:31)
[2017-02-15 09:49] LABS: Calcium 7.9 MG/DL (8.5-10.1); Magnesium 1.8 MG/DL (1.8-2.4); Osmolality,Calculated 285.1 MOS/KG (273-304); Potassium 4.4 MMOL/L (3.5-5.1)
[2017-02-15] MEDS: FUROSEMIDE 20 MG/2 ML VIAL IV SCH ×2 (10:41→17:37)
[2017-02-15] MEDS: PANTOPRAZOLE 40 MG VIAL IV SCH (10:43)
[2017-02-15] MEDS: methylPREDNISolone SOD SUC 40 MG/1 ML VIAL IV SCH ×2 (10:44→21:00)
[2017-02-15] MEDS: INSULIN GLARGINE 100 UNIT/ML SUBCUT SCH (10:45)
[2017-02-15] MEDS: FOLIC ACID INJ 1 MG in SYRINGE 1 EACH IV SCH (10:47)
[2017-02-15] MEDS: THIAMINE 200 MG/2 ML VIAL IV SCH (10:51)
[2017-02-15] MEDS: PIPERACILLIN/TAZOBACTAM 3,375 MG in SODIUM CHLORIDE 0.9% 100 ML IV SCH ×2 (10:52→20:39)
[2017-02-15] MEDS: LACTULOSE 20 GM/30 ML UDCUP PO SCH ×2 (10:56→20:43)
[2017-02-15] MEDS: APIXABAN 5 MG TABLET PO SCH ×2 (10:56→20:43)
[2017-02-15] MEDS: METOPROLOL TARTRATE 25 MG TABLET PO SCH ×2 (10:56→20:43)
[2017-02-15] MEDS: AMIODARONE 200 MG TABLET PO SCH ×2 (10:56→20:43)
[2017-02-15] MEDS: DEXT 5% NACL 0.2% KCL 20 MEQ 20 MEQ/1,000 ML BAG IV SCH ×2 (10:57→20:44)
[2017-02-15] MEDS: FLUCONAZOLE INJ 200 MG in PREMIX 1 EACH IV SCH (14:47)
[2017-02-15] MEDS: OSELTAMIVIR 30 MG CAPSULE PO SCH (17:41)
[2017-02-16] MEDS: INSULIN REGULAR 100 UNIT/ML SUBCUT SCH ×4 (00:55→16:40)
[2017-02-16] MEDS: ALBUTEROL/IPRATROPIUM 3 ML NEB RESP TX SCH ×6 (03:00→23:05)
[2017-02-16] MEDS: DEXT 5% NACL 0.2% KCL 20 MEQ 20 MEQ/1,000 ML BAG IV SCH ×3 (06:44→20:39)
[2017-02-16] MEDS: FUROSEMIDE 20 MG/2 ML VIAL IV SCH ×2 (09:28→17:48)
[2017-02-16] MEDS: PANTOPRAZOLE 40 MG VIAL IV SCH (09:32)
[2017-02-16] MEDS: methylPREDNISolone SOD SUC 40 MG/1 ML VIAL IV SCH (09:35)
[2017-02-16] MEDS: INSULIN GLARGINE 100 UNIT/ML SUBCUT SCH (09:41)
[2017-02-16] MEDS: METOPROLOL TARTRATE 25 MG TABLET PO SCH ×2 (09:42→21:09)
[2017-02-16] MEDS: AMIODARONE 200 MG TABLET PO SCH ×2 (09:42→21:09)
[2017-02-16] MEDS: DESITIN 4OZ/NYSTATIN 15 GRAM MIXTURE PASTE TOP SCH ×2 (09:43→21:11)
[2017-02-16] MEDS: LACTULOSE 20 GM/30 ML UDCUP PO SCH ×3 (09:43→21:11)
[2017-02-16] MEDS: APIXABAN 5 MG TABLET PO SCH ×2 (09:50→21:10)
[2017-02-16] MEDS: THIAMINE 200 MG/2 ML VIAL IV SCH (10:10)
[2017-02-16] MEDS: PIPERACILLIN/TAZOBACTAM 3,375 MG in SODIUM CHLORIDE 0.9% 100 ML IV SCH ×2 (10:20→20:40)
[2017-02-16] MEDS: FOLIC ACID INJ 1 MG in SYRINGE 1 EACH IV SCH (13:57)
[2017-02-16] MEDS: FLUCONAZOLE INJ 200 MG in PREMIX 1 EACH IV SCH (14:20)
[2017-02-17] MEDS: ALBUTEROL/IPRATROPIUM 3 ML NEB RESP TX SCH ×5 (02:41→20:50)
[2017-02-17] MEDS: INSULIN REGULAR 100 UNIT/ML SUBCUT SCH ×5 (03:25→23:51)
[2017-02-17] MEDS: methylPREDNISolone SOD SUC 40 MG/1 ML VIAL IV SCH ×2 (03:49→16:06)
[2017-02-17] MEDS: FUROSEMIDE 20 MG/2 ML VIAL IV SCH ×2 (08:03→16:11)
[2017-02-17] MEDS: PANTOPRAZOLE 40 MG VIAL IV SCH (08:08)
[2017-02-17] MEDS: THIAMINE 200 MG/2 ML VIAL IV SCH (08:11)
[2017-02-17] MEDS: LACTULOSE 20 GM/30 ML UDCUP PO SCH (08:16)
[2017-02-17] MEDS: METOPROLOL TARTRATE 25 MG TABLET PO SCH ×2 (08:16→21:06)
[2017-02-17] MEDS: AMIODARONE 200 MG TABLET PO SCH ×2 (08:17→21:06)
[2017-02-17] MEDS: APIXABAN 5 MG TABLET PO SCH ×2 (08:18→21:06)
[2017-02-17] MEDS: FOLIC ACID INJ 1 MG in SYRINGE 1 EACH IV SCH (08:28)
[2017-02-17] MEDS: PIPERACILLIN/TAZOBACTAM 3,375 MG in SODIUM CHLORIDE 0.9% 100 ML IV SCH ×2 (08:59→20:33)
[2017-02-17] MEDS: INSULIN GLARGINE 100 UNIT/ML SUBCUT SCH (09:45)
[2017-02-17] MEDS: DESITIN 4OZ/NYSTATIN 15 GRAM MIXTURE PASTE TOP SCH ×2 (09:45→21:30)
[2017-02-17] MEDS: FLUCONAZOLE INJ 200 MG in PREMIX 1 EACH IV SCH (13:08)
[2017-02-17] MEDS: DEXT 5% NACL 0.2% KCL 20 MEQ 20 MEQ/1,000 ML BAG IV SCH ×2 (20:29→20:30)
[2017-02-18] MEDS: ALBUTEROL/IPRATROPIUM 3 ML NEB RESP TX SCH ×5 (00:58→18:30)
[2017-02-18] MEDS: methylPREDNISolone SOD SUC 40 MG/1 ML VIAL IV SCH (04:03)
[2017-02-18] MEDS: LACTULOSE 20 GM/30 ML UDCUP PO SCH ×4 (04:56→21:32)
[2017-02-18 05:55] LABS: Hematocrit 27.3 VOL% (35.7-47.0); Immature Granulocytes % 0.7 %; Immature Granulocytes Absolute 0.07 #; Lymphocytes # 0.5 10*3/uL (1.4-4.0); Lymphocytes % 5.3 % (21.3-54.2); Mean Corpuscular Hemoglobin 29 PG (27-34); Mean Corpuscular Volume 88.6 FL (87-102); Mean Platelet Volume 10.1 FL (9.6-12.0); Monocytes % 9.7 % (1.7-12.7); Neutrophils # 8.3 10*3/uL (1.4-7.4); Neutrophils % 84.3 % (38.7-73.9); Platelet Count 573 T/CUMM (130-400); Red Blood Count 3.08 MC/CUMM (3.8-5.5); Red Cell Distribution Width 14.8 % (9.3-17.3); White Blood Count 9.9 T/CUMM (4-12)
[2017-02-18] MEDS: INSULIN REGULAR 100 UNIT/ML SUBCUT SCH ×3 (06:16→18:41)
[2017-02-18 06:32] LABS: Osmolality,Calculated 276.8 MOS/KG (273-304); Potassium 3.6 MMOL/L (3.5-5.1)
[2017-02-18] MEDS ORDERED: PIPERACILLIN/TAZOBACTAM 3,375 MG in SODIUM CHLORIDE 0.9% 100 ML IV SCH (09:00)
[2017-02-18] MEDS: METOPROLOL TARTRATE 25 MG TABLET PO SCH ×2 (09:22→21:32)
[2017-02-18] MEDS: AMIODARONE 200 MG TABLET PO SCH ×2 (09:22→21:32)
[2017-02-18] MEDS: APIXABAN 5 MG TABLET PO SCH ×2 (09:23→21:32)
[2017-02-18] MEDS: THIAMINE 200 MG/2 ML VIAL IV SCH (09:24)
[2017-02-18] MEDS: DESITIN 4OZ/NYSTATIN 15 GRAM MIXTURE PASTE TOP SCH ×2 (09:24→21:34)
[2017-02-18] MEDS: PANTOPRAZOLE 40 MG VIAL IV SCH (09:24)
[2017-02-18] MEDS: FUROSEMIDE 20 MG/2 ML VIAL IV SCH ×2 (09:24→15:51)
[2017-02-18] MEDS: INSULIN GLARGINE 100 UNIT/ML SUBCUT SCH (10:06)
[2017-02-18] MEDS: MAGNESIUM OXIDE 400 MG TABLET PO SCH (10:06)
[2017-02-18] MEDS: FOLIC ACID INJ 1 MG in SYRINGE 1 EACH IV SCH (10:08)
[2017-02-18] MEDS ORDERED: MAGNESIUM SULF RIDER 4 GM in PREMIX 1 EACH IV ONE (11:00)
[2017-02-19] MEDS: ALBUTEROL/IPRATROPIUM 3 ML NEB RESP TX SCH ×8 (01:15→23:10)
[2017-02-19] MEDS: DEXT 5% NACL 0.2% KCL 20 MEQ 20 MEQ/1,000 ML BAG IV SCH (06:20)
[2017-02-19] MEDS: INSULIN REGULAR 100 UNIT/ML SUBCUT SCH ×4 (06:20→18:47)
[2017-02-19 08:08] LABS: Calcium 7.2 MG/DL (8.5-10.1); Magnesium 1.7 MG/DL (1.8-2.4); Osmolality,Calculated 272.8 MOS/KG (273-304); Potassium 3.1 MMOL/L (3.5-5.1)
[2017-02-19] MEDS: INSULIN GLARGINE 100 UNIT/ML SUBCUT SCH (08:33)
[2017-02-19] MEDS: LACTULOSE 20 GM/30 ML UDCUP PO SCH ×2 (08:40→21:06)
[2017-02-19] MEDS: ACETAMINOPHEN 325 MG/10.15 ML UDCUP PO PRN (08:40)
[2017-02-19] MEDS: THIAMINE 100 MG TABLET PO SCH (08:41)
[2017-02-19] MEDS: FUROSEMIDE 20 MG/2 ML VIAL IV SCH ×2 (08:41→16:04)
[2017-02-19] MEDS: METOPROLOL TARTRATE 25 MG TABLET PO SCH ×2 (08:41→21:06)
[2017-02-19] MEDS: APIXABAN 5 MG TABLET PO SCH ×2 (08:41→21:06)
[2017-02-19] MEDS: FOLIC ACID 1 MG TABLET PO SCH (08:41)
[2017-02-19] MEDS: PANTOPRAZOLE 40 MG TABLET PO SCH (08:42)
[2017-02-19] MEDS: MAGNESIUM OXIDE 400 MG TABLET PO SCH (08:42)
[2017-02-19] MEDS: AMIODARONE 200 MG TABLET PO SCH ×2 (08:42→21:06)
[2017-02-19] MEDS ORDERED: MAGNESIUM SULF RIDER 2 GM in PREMIX 1 EACH IV ONE (09:00)
[2017-02-19] MEDS ORDERED: PHENOL 1.4% THROAT SPRAY 177 ML BOTTLE PO PRN (09:15)
[2017-02-19] MEDS: DESITIN 4OZ/NYSTATIN 15 GRAM MIXTURE PASTE TOP SCH ×2 (09:34→21:08)
[2017-02-19] MEDS: POTASSIUM CHLORIDE 20 MEQ TABLET PO SCH ×4 (09:55→16:05)
[2017-02-20] MEDS: INSULIN REGULAR 100 UNIT/ML SUBCUT SCH ×3 (02:54→11:39)
[2017-02-20] MEDS: ALBUTEROL/IPRATROPIUM 3 ML NEB RESP TX SCH ×3 (03:00→11:10)
[2017-02-20] MEDS: DEXT 5% NACL 0.2% KCL 20 MEQ 20 MEQ/1,000 ML BAG IV SCH (05:30)
[2017-02-20 06:53] LABS: Calcium 7.3 MG/DL (8.5-10.1); Magnesium 1.7 MG/DL (1.8-2.4); Osmolality,Calculated 266.2 MOS/KG (273-304); Potassium 3.9 MMOL/L (3.5-5.1)
[2017-02-20] MEDS ORDERED: MAGNESIUM SULF RIDER 2 GM in PREMIX 1 EACH IV ONE (09:00)
[2017-02-20] MEDS: FUROSEMIDE 20 MG/2 ML VIAL IV SCH (09:37)
[2017-02-20] MEDS: MAGNESIUM OXIDE 400 MG TABLET PO SCH (09:39)
[2017-02-20] MEDS: METOPROLOL TARTRATE 25 MG TABLET PO SCH (09:39)
[2017-02-20] MEDS: THIAMINE 100 MG TABLET PO SCH (09:39)
[2017-02-20] MEDS: AMIODARONE 200 MG TABLET PO SCH (09:39)
[2017-02-20] MEDS: FOLIC ACID 1 MG TABLET PO SCH (09:39)
[2017-02-20] MEDS: PANTOPRAZOLE 40 MG TABLET PO SCH (09:39)
[2017-02-20] MEDS: LACTULOSE 20 GM/30 ML UDCUP PO SCH (09:40)
[2017-02-20] MEDS: INSULIN GLARGINE 100 UNIT/ML SUBCUT SCH (09:40)
[2017-02-20] MEDS: APIXABAN 5 MG TABLET PO SCH (09:40)
[2017-02-20] MEDS: DESITIN 4OZ/NYSTATIN 15 GRAM MIXTURE PASTE TOP SCH (09:40)
[2017-02-20 11:46] VITALS: BP 92/62
[2017-02-21 09:38] LABS: Hepatitis C Virus Ab Result Positive (Negative)
== END 2017-02-20 14:48 | DRG 207 ==
LOC: EDBD → EDUNIT# → N.ED 05:34 → SUATTDRO 07:10 → N.EDINP 07:10 → N.CC 10:46 → N.2E 02-15 18:53
PROVIDERS: ADMIT Internal Medicine; ATTEND Internal Medicine

== ENCOUNTER 2017-08-14 11:23 | Inpatient (IN) ==
[2017-08-14 12:36] LABS: Basophils % 0.2 % (0.0-0.8); Eosinophils # 0.2 10*3/uL (0.0-0.87); Eosinophils % 0.9 % (0.00-10.9); Hematocrit 26.8 VOL% (35.7-47.0); Hemoglobin 9.1 GM/DL (12.0-16.0); Immature Granulocytes % 0.7 %; Immature Granulocytes Absolute 0.14 #; Lymphocytes # 0.7 10*3/uL (1.4-4.0); Lymphocytes % 3.7 % (21.3-54.2); Mean Corpuscular Hemoglobin 29 PG (27-34); Mean Corpuscular Volume 84.5 FL (87-102); Mean Platelet Volume 10.1 FL (9.6-12.0); Monocytes # 1.8 10*3/uL (0.11-0.8); Monocytes % 9.6 % (1.7-12.7); Neutrophils # 16.1 10*3/uL (1.4-7.4); Neutrophils % 84.9 % (38.7-73.9); Platelet Count 548 T/CUMM (130-400); Red Blood Count 3.17 MC/CUMM (3.8-5.5); Red Cell Distribution Width 15.8 % (9.3-17.3); White Blood Count 18.9 T/CUMM (4-12)
[2017-08-14 12:50] LABS: INR 1.2; PT Patient Result 12.5 SECS
[2017-08-14] MEDS ORDERED: PROMETHAZINE INJ 12.5 MG in SODIUM CHLORIDE 0.9% 50 ML IV STA (13:00)
[2017-08-14] MEDS ORDERED: MEPERIDINE 25 MG/1 ML VIAL IV STA (13:00)
[2017-08-14 13:02] LABS: Alanine Aminotransferase 69 U/L (13-56); Albumin 3.2 G/DL (3.4-5.0); Alkaline Phosphatase 89 U/L (45-117); Aspartate Amino Transferase 28 U/L (0-37); Blood Urea Nitrogen 40 MG/DL (7-18); CKMB % 3.5 %; Calcium 8.2 MG/DL (8.5-10.1); Glucose 88 MG/DL (74-106); Osmolality,Calculated 270.7 MOS/KG (273-304); Potassium 4.3 MMOL/L (3.5-5.1); Sodium 131 MMOL/L (136-145); Total Protein 6.9 G/DL (6.4-8.3); Troponin I Only < 0.015 NG/ML (0.00-0.045)
[2017-08-14 13:04] LABS: Partial Thromboplastin Time 45.4 SECS (0-40)
[2017-08-14] MEDS ORDERED: SODIUM CHLORIDE 0.9% 1,000 ML IV STA (13:05)
[2017-08-14] MEDS ORDERED: ONDANSETRON 4 MG/2 ML VIAL IV STA (13:13)
[2017-08-14 13:35] LABS: Apearance,Urine CLEAR (Clear); Bacteria,Urine Occasional /HPF (Few); Bilirubin,Urine Negative (Negative); Blood, Urine Negative (Negative); Glucose,Urine (UA) Negative (Negative); Ketones,Urine Negative (Negative); Nitrite,Urine Negative (Negative); Protein,Urine 30 MG/DL; RBC,Urine 5 /HPF (0-4); Squamous Epithelial Cell,Urine Occasional /HPF (0-10); Urine Color Yellow (Yellow); Urine Specific Gravity 1.013 (1.001-1.035); Urine Urobilinogen < 2.0 EU/DL (0.2-1.0); WBC,Urine 1 /HPF (0-6)
[2017-08-14 13:49] LABS: Barbiturates Screen,Urine Negative (Negative); Benzodiazepines Screen,Urine Negative (Negative); Cannabinoid Screen,Urine Negative (Negative); Opiate Screen,Urine Negative (Negative); Phencyclidine Screen,Urine Negative (Negative)
[2017-08-14] MEDS ORDERED: ONDANSETRON 4 MG/2 ML VIAL IV PRN (15:04)
[2017-08-14] MEDS ORDERED: MORPHINE 4 MG/1 ML VIAL IV PRN (15:04)
[2017-08-14 15:05] LABS: Anisocytosis Slight; Hypochromasia 1+
[2017-08-14 15:06] LABS: Macrocytosis Slight
[2017-08-14] MEDS: SODIUM CHLORIDE 0.9% 1,000 ML IV SCH (18:23)
[2017-08-14] MEDS: ALBUTEROL/IPRATROPIUM 3 ML NEB RESP TX SCH ×2 (20:57→23:52)
[2017-08-14] MEDS: FLUTICASONE/SALMETEROL 250-50 DISKUS 14 DOSE INH SCH (22:24)
[2017-08-14] MEDS: AMIODARONE 200 MG TABLET PO SCH (22:24)
[2017-08-14] MEDS: METOPROLOL TARTRATE 25 MG TABLET PO SCH (22:24)
[2017-08-15] MEDS: ALBUTEROL/IPRATROPIUM 3 ML NEB RESP TX SCH ×6 (03:07→23:22)
[2017-08-15 05:54] LABS: INR 1.2; PT Patient Result 12.5 SECS
[2017-08-15] MEDS ORDERED: VANCOMYCIN INJ 1,000 MG in SODIUM CHLORIDE 0.9% 250 ML IV ONE (06:00)
[2017-08-15] MEDS ORDERED: ceFAZolin 1,000 MG in SYRINGE 1 EACH IV ONE (06:00)
[2017-08-15 06:04] LABS: Basophils % 0.3 % (0.0-0.8); Eosinophils # 0.2 10*3/uL (0.0-0.87); Hematocrit 23.7 VOL% (35.7-47.0); Hemoglobin 7.8 GM/DL (12.0-16.0); Immature Granulocytes % 0.9 %; Immature Granulocytes Absolute 0.13 #; Lymphocytes # 0.7 10*3/uL (1.4-4.0); Lymphocytes % 4.3 % (21.3-54.2); Mean Corpuscular HGB Conc 32.9 GM/DL (32-36); Mean Corpuscular Hemoglobin 28 PG (27-34); Mean Corpuscular Volume 85.9 FL (87-102); Mean Platelet Volume 10.8 FL (9.6-12.0); Monocytes # 1.7 10*3/uL (0.11-0.8); Monocytes % 10.9 % (1.7-12.7); Neutrophils # 12.6 10*3/uL (1.4-7.4); Neutrophils % 82.6 % (38.7-73.9); Platelet Count 503 T/CUMM (130-400); Red Blood Count 2.76 MC/CUMM (3.8-5.5); Red Cell Distribution Width 15.8 % (9.3-17.3); White Blood Count 15.3 T/CUMM (4-12)
[2017-08-15] MEDS ORDERED: SODIUM CHLORIDE 0.9% 1,000 ML IV PRN (06:20)
[2017-08-15 06:26] LABS: Eosinophils 1 % (0-10); Hypochromasia 1+; Lymphocytes 3 % (20-55); Platelet Estimate Increased; Segmented Neutrophils 88 % (50-85); Total Cells Counted 100
[2017-08-15 06:27] LABS: Ovalocytes Slight
[2017-08-15 06:29] LABS: Albumin 2.4 G/DL (3.4-5.0); Bilirubin,Total 0.8 MG/DL (0.2-1.0); Osmolality,Calculated 276.1 MOS/KG (273-304); Total Protein 6.3 G/DL (6.4-8.3)
[2017-08-15] MEDS ORDERED: MAGNESIUM SULF RIDER 2 GM in PREMIX 1 EACH IV PRN (06:34)
[2017-08-15] MEDS ORDERED: POTASSIUM CHLORIDE RIDER 10 MEQ in PREMIX 1 EACH IV PRN (06:34)
[2017-08-15] MEDS ORDERED: MAGNESIUM SULF RIDER 4 GM in PREMIX 1 EACH IV PRN (06:34)
[2017-08-15] MEDS ORDERED: MAGNESIUM HYDROXIDE SUSP 30 ML UDCUP PO PRN (07:22)
[2017-08-15] MEDS ORDERED: PROMETHAZINE 25 MG/1 ML VIAL IM PRN (07:22)
[2017-08-15] MEDS ORDERED: LACTULOSE 20 GM/30 ML UDCUP PO PRN (07:22)
[2017-08-15] MEDS ORDERED: TEMAZEPAM 7.5 MG CAPSULE PO PRN (07:22)
[2017-08-15] MEDS ORDERED: diphenhydrAMINE CAP 25 MG CAPSULE PO PRN (07:22)
[2017-08-15] MEDS ORDERED: BISACODYL 10 MG SUPP RECTAL PRN (07:22)
[2017-08-15] MEDS ORDERED: MORPHINE 4 MG/1 ML VIAL IV PRN ×2 (07:26→07:31)
[2017-08-15] MEDS: SODIUM CHLORIDE 0.9% 1,000 ML IV SCH ×2 (08:57→18:17)
[2017-08-15] MEDS: PANTOPRAZOLE 40 MG TABLET PO SCH (08:57)
[2017-08-15] MEDS: DOCUSATE SODIUM 100 MG CAPSULE PO SCH ×2 (08:58→21:35)
[2017-08-15] MEDS: CITALOPRAM 40 MG TABLET PO SCH (08:58)
[2017-08-15] MEDS: MAGNESIUM GLUCONATE 500 MG TABLET PO SCH (08:58)
[2017-08-15] MEDS: FLUTICASONE/SALMETEROL 250-50 DISKUS 14 DOSE INH SCH ×2 (08:58→21:33)
[2017-08-15] MEDS ORDERED: NON-FORMULARY MEDICATION (Pravastatin Sodium [Pravachol] 80 MG) PO SCH (09:00)
[2017-08-15] MEDS ORDERED: SUGAMMADEX 200 MG/2 ML VIAL IV ONE (09:14)
[2017-08-15] MEDS ORDERED: SEVOFLURANE 1 UNIT/15 MINUTE INH ONE (09:55)
[2017-08-15] MEDS ORDERED: PROPOFOL 200 MG/20 ML VIAL IV ONE (09:55)
[2017-08-15] MEDS ORDERED: ePHEDrine 50 MG/ML AMP ONE (09:56)
[2017-08-15] MEDS ORDERED: GLYCOPYRROLATE 0.4 MG/2 ML VIAL ONE (09:56)
[2017-08-15] MEDS ORDERED: ACETAMINOPHEN 1,000 MG/100 ML VIAL IV ONE (09:56)
[2017-08-15] MEDS ORDERED: fentaNYL 100 MCG/2 ML VIAL ONE (09:56)
[2017-08-15] MEDS ORDERED: MIDAZOLAM 2 MG/2 ML VIAL ONE (09:56)
[2017-08-15] MEDS ORDERED: ROCURONIUM 100 MG/10 ML VIAL IV ONE (09:57)
[2017-08-15] MEDS ORDERED: SODIUM CHLORIDE 0.9% 1,000 ML IV ONE (09:57)
[2017-08-15] MEDS: AMIODARONE 200 MG TABLET PO SCH ×2 (11:00→21:34)
[2017-08-15] MEDS: METOPROLOL TARTRATE 25 MG TABLET PO SCH ×2 (11:00→21:34)
[2017-08-15] MEDS: ceFAZolin 1,000 MG in SYRINGE 1 EACH IV SCH ×2 (14:15→21:33)
[2017-08-15] MEDS: THIAMINE 200 MG/2 ML VIAL IV SCH (16:55)
[2017-08-15] MEDS ORDERED: PHENOL 1.4% THROAT SPRAY 177 ML BOTTLE PO PRN (17:00)
[2017-08-16] MEDS: SODIUM CHLORIDE 0.9% 1,000 ML IV SCH ×3 (02:59→22:48)
[2017-08-16] MEDS: ALBUTEROL/IPRATROPIUM 3 ML NEB RESP TX SCH ×6 (03:36→23:26)
[2017-08-16] MEDS: FONDAPARINUX 2.5 MG/0.5 ML SYRINGE SUBCUT SCH (05:43)
[2017-08-16 06:26] LABS: Basophils % 0.2 % (0.0-0.8); Eosinophils # 0.1 10*3/uL (0.0-0.87); Eosinophils % 0.5 % (0.00-10.9); Hemoglobin 9.7 GM/DL (12.0-16.0); Immature Granulocytes % 0.8 %; Immature Granulocytes Absolute 0.14 #; Lymphocytes # 0.7 10*3/uL (1.4-4.0); Lymphocytes % 3.8 % (21.3-54.2); Mean Corpuscular HGB Conc 33.4 GM/DL (32-36); Mean Corpuscular Hemoglobin 29 PG (27-34); Mean Corpuscular Volume 85.8 FL (87-102); Monocytes # 2.3 10*3/uL (0.11-0.8); Monocytes % 13.2 % (1.7-12.7); Neutrophils # 14.1 10*3/uL (1.4-7.4); Neutrophils % 81.5 % (38.7-73.9); Platelet Count 463 T/CUMM (130-400); Red Blood Count 3.38 MC/CUMM (3.8-5.5); Red Cell Distribution Width 16.1 % (9.3-17.3); White Blood Count 17.3 T/CUMM (4-12)
[2017-08-16 06:54] LABS: Band Neutrophils 9 % (0-10); Eosinophils 1 % (0-10); Lymphocytes 3 % (20-55); Segmented Neutrophils 80 % (50-85); Total Cells Counted 100
[2017-08-16 06:56] LABS: Polychromasia Slight
[2017-08-16 07:06] LABS: Calcium 7.9 MG/DL (8.5-10.1); Osmolality,Calculated 274.1 MOS/KG (273-304); Potassium 3.8 MMOL/L (3.5-5.1)
[2017-08-16] MEDS ORDERED: ACETAMINOPHEN 325 MG TABLET PO PRN (07:23)
[2017-08-16] MEDS: CITALOPRAM 40 MG TABLET PO SCH (09:45)
[2017-08-16] MEDS: MAGNESIUM GLUCONATE 500 MG TABLET PO SCH (09:45)
[2017-08-16] MEDS: THIAMINE 200 MG/2 ML VIAL IV SCH (09:46)
[2017-08-16] MEDS: METOPROLOL TARTRATE 25 MG TABLET PO SCH ×2 (09:46→20:18)
[2017-08-16] MEDS: PANTOPRAZOLE 40 MG TABLET PO SCH (09:46)
[2017-08-16] MEDS: DOCUSATE SODIUM 100 MG CAPSULE PO SCH ×2 (09:46→20:18)
[2017-08-16] MEDS: AMIODARONE 200 MG TABLET PO SCH ×2 (09:46→20:18)
[2017-08-16] MEDS: FLUTICASONE/SALMETEROL 250-50 DISKUS 14 DOSE INH SCH ×2 (09:49→20:18)
[2017-08-17] MEDS: ALBUTEROL/IPRATROPIUM 3 ML NEB RESP TX SCH ×4 (03:22→15:19)
[2017-08-17] MEDS: SODIUM CHLORIDE 0.9% 1,000 ML IV SCH ×2 (04:42→13:56)
[2017-08-17 05:18] LABS: Basophils # 0.1 10*3/uL (0.0-0.2); Basophils % 0.4 % (0.0-0.8); Eosinophils # 0.3 10*3/uL (0.0-0.87); Eosinophils % 1.7 % (0.00-10.9); Hematocrit 30.7 VOL% (35.7-47.0); Hemoglobin 9.5 GM/DL (12.0-16.0); Immature Granulocytes % 0.9 %; Immature Granulocytes Absolute 0.15 #; Lymphocytes % 6.2 % (21.3-54.2); Mean Corpuscular HGB Conc 30.9 GM/DL (32-36); Mean Corpuscular Hemoglobin 28 PG (27-34); Mean Corpuscular Volume 90.6 FL (87-102); Mean Platelet Volume 10.6 FL (9.6-12.0); Monocytes % 12.1 % (1.7-12.7); Neutrophils # 12.8 10*3/uL (1.4-7.4); Neutrophils % 78.7 % (38.7-73.9); Platelet Count 493 T/CUMM (130-400); Red Blood Count 3.39 MC/CUMM (3.8-5.5); Red Cell Distribution Width 16.4 % (9.3-17.3); White Blood Count 16.2 T/CUMM (4-12)
[2017-08-17] MEDS: FONDAPARINUX 2.5 MG/0.5 ML SYRINGE SUBCUT SCH (05:24)
[2017-08-17] MEDS: THIAMINE 200 MG/2 ML VIAL IV SCH (10:07)
[2017-08-17] MEDS: PANTOPRAZOLE 40 MG TABLET PO SCH (10:55)
[2017-08-17] MEDS: CITALOPRAM 40 MG TABLET PO SCH (10:55)
[2017-08-17] MEDS: FLUTICASONE/SALMETEROL 250-50 DISKUS 14 DOSE INH SCH ×2 (10:55→20:35)
[2017-08-17] MEDS: DOCUSATE SODIUM 100 MG CAPSULE PO SCH ×2 (10:56→20:35)
[2017-08-17] MEDS: AMIODARONE 200 MG TABLET PO SCH ×2 (10:57→20:35)
[2017-08-17] MEDS: MAGNESIUM GLUCONATE 500 MG TABLET PO SCH (10:58)
[2017-08-17] MEDS: METOPROLOL TARTRATE 25 MG TABLET PO SCH ×2 (10:58→20:35)
[2017-08-17 17:35] LABS: Apearance,Urine CLEAR (Clear); Bilirubin,Urine Negative (Negative); Blood, Urine Small mg/dL (Negative); Glucose,Urine (UA) Negative (Negative); Ketones,Urine Negative (Negative); Mucus,Urine Occasional /LPF (Occasional); Nitrite,Urine Negative (Negative); Protein,Urine Negative; RBC,Urine 5 /HPF (0-4); Urine Color Yellow (Yellow); Urine Specific Gravity 1.015 (1.001-1.035); WBC,Urine 12 /HPF (0-6)
[2017-08-18] MEDS: ALBUTEROL/IPRATROPIUM 3 ML NEB RESP TX SCH ×7 (00:15→19:37)
[2017-08-18] MEDS: SODIUM CHLORIDE 0.9% 1,000 ML IV SCH ×3 (01:49→16:02)
[2017-08-18 05:11] LABS: Basophils # 0.1 10*3/uL (0.0-0.2); Basophils % 0.3 % (0.0-0.8); Eosinophils # 0.4 10*3/uL (0.0-0.87); Eosinophils % 2.4 % (0.00-10.9); Hematocrit 30.9 VOL% (35.7-47.0); Hemoglobin 9.7 GM/DL (12.0-16.0); Immature Granulocytes % 1.6 %; Immature Granulocytes Absolute 0.24 #; Lymphocytes # 0.6 10*3/uL (1.4-4.0); Lymphocytes % 4.1 % (21.3-54.2); Mean Corpuscular HGB Conc 31.4 GM/DL (32-36); Mean Corpuscular Hemoglobin 28 PG (27-34); Mean Corpuscular Volume 89.8 FL (87-102); Mean Platelet Volume 9.9 FL (9.6-12.0); Monocytes # 1.6 10*3/uL (0.11-0.8); Monocytes % 10.7 % (1.7-12.7); Neutrophils # 12.4 10*3/uL (1.4-7.4); Neutrophils % 80.9 % (38.7-73.9); Platelet Count 497 T/CUMM (130-400); Red Blood Count 3.44 MC/CUMM (3.8-5.5); Red Cell Distribution Width 16.3 % (9.3-17.3); White Blood Count 15.3 T/CUMM (4-12)
[2017-08-18] MEDS: FONDAPARINUX 2.5 MG/0.5 ML SYRINGE SUBCUT SCH (05:51)
[2017-08-18 05:54] LABS: Anisocytosis 1+; Band Neutrophils 4 % (0-10); Eosinophils 4 % (0-10); Lymphocytes 2 % (20-55); Poikilocytosis 1+; Segmented Neutrophils 82 % (50-85); Total Cells Counted 100
[2017-08-18 05:55] LABS: Polychromasia 1+
[2017-08-18] MEDS ORDERED: BISACODYL 5 MG TABLET PO ONE (07:20)
[2017-08-18] MEDS ORDERED: MAGNESIUM HYDROXIDE SUSP 30 ML UDCUP PO ONE (07:21)
[2017-08-18] MEDS: THIAMINE 200 MG/2 ML VIAL IV SCH (09:48)
[2017-08-18] MEDS: LEVOFLOXACIN INJ 500 MG in PREMIX 1 EACH IV SCH (09:48)
[2017-08-18] MEDS: MAGNESIUM GLUCONATE 500 MG TABLET PO SCH (09:50)
[2017-08-18] MEDS: CITALOPRAM 40 MG TABLET PO SCH (09:51)
[2017-08-18] MEDS: METOPROLOL TARTRATE 25 MG TABLET PO SCH ×2 (09:51→20:20)
[2017-08-18] MEDS: AMIODARONE 200 MG TABLET PO SCH ×2 (09:52→20:20)
[2017-08-18] MEDS: PANTOPRAZOLE 40 MG TABLET PO SCH (09:52)
[2017-08-18] MEDS: DOCUSATE SODIUM 100 MG CAPSULE PO SCH ×2 (09:52→20:20)
[2017-08-18] MEDS: FLUTICASONE/SALMETEROL 250-50 DISKUS 14 DOSE INH SCH ×2 (11:02→20:20)
[2017-08-19] MEDS: ALBUTEROL/IPRATROPIUM 3 ML NEB RESP TX SCH ×4 (03:45→11:10)
[2017-08-19 05:32] LABS: Basophils # 0.1 10*3/uL (0.0-0.2); Basophils % 0.5 % (0.0-0.8); Eosinophils # 0.3 10*3/uL (0.0-0.87); Eosinophils % 2.4 % (0.00-10.9); Hematocrit 29.3 VOL% (35.7-47.0); Hemoglobin 9.6 GM/DL (12.0-16.0); Immature Granulocytes % 0.9 %; Immature Granulocytes Absolute 0.11 #; Lymphocytes # 0.6 10*3/uL (1.4-4.0); Lymphocytes % 4.3 % (21.3-54.2); Mean Corpuscular HGB Conc 32.8 GM/DL (32-36); Mean Corpuscular Hemoglobin 29 PG (27-34); Mean Corpuscular Volume 86.9 FL (87-102); Mean Platelet Volume 9.8 FL (9.6-12.0); Monocytes # 1.2 10*3/uL (0.11-0.8); Monocytes % 9.2 % (1.7-12.7); Neutrophils # 10.7 10*3/uL (1.4-7.4); Neutrophils % 82.7 % (38.7-73.9); Platelet Count 514 T/CUMM (130-400); Red Blood Count 3.37 MC/CUMM (3.8-5.5); Red Cell Distribution Width 16.5 % (9.3-17.3); White Blood Count 12.9 T/CUMM (4-12)
[2017-08-19] MEDS: SODIUM CHLORIDE 0.9% 1,000 ML IV SCH (05:45)
[2017-08-19] MEDS: FONDAPARINUX 2.5 MG/0.5 ML SYRINGE SUBCUT SCH (05:46)
[2017-08-19 05:54] LABS: Albumin 1.9 G/DL (3.4-5.0); Bilirubin,Total 0.8 MG/DL (0.2-1.0); Calcium 7.8 MG/DL (8.5-10.1); Osmolality,Calculated 274.7 MOS/KG (273-304); Potassium 3.7 MMOL/L (3.5-5.1); Total Protein 5.3 G/DL (6.4-8.3)
[2017-08-19 06:31] LABS: Eosinophils 3 % (0-10); Lymphocytes 1 % (20-55); Platelet Estimate Increased; Polychromasia Slight; Segmented Neutrophils 92 % (50-85); Total Cells Counted 100
[2017-08-19] MEDS: AMIODARONE 200 MG TABLET PO SCH (09:47)
[2017-08-19] MEDS: METOPROLOL TARTRATE 25 MG TABLET PO SCH (09:47)
[2017-08-19] MEDS: DOCUSATE SODIUM 100 MG CAPSULE PO SCH (09:47)
[2017-08-19] MEDS: PANTOPRAZOLE 40 MG TABLET PO SCH (09:47)
[2017-08-19] MEDS: CITALOPRAM 40 MG TABLET PO SCH (09:47)
[2017-08-19] MEDS: MAGNESIUM GLUCONATE 500 MG TABLET PO SCH (09:47)
[2017-08-19] MEDS: THIAMINE 200 MG/2 ML VIAL IV SCH (09:48)
[2017-08-19] MEDS: FLUTICASONE/SALMETEROL 250-50 DISKUS 14 DOSE INH SCH (09:53)
[2017-08-19] MEDS: LEVOFLOXACIN INJ 500 MG in PREMIX 1 EACH IV SCH (09:54)
[2017-08-19 11:12] VITALS: BP 147/71
[2017-08-19] MEDS ORDERED: MAGNESIUM GLUCONATE 500 MG TABLET PO SCH (13:05)
== END 2017-08-19 14:10 | DRG 470 ==
LOC: EDBD → EDUNIT# → N.ED 11:23 → N.EDINP 15:01 → N.3E 17:37
PROVIDERS: ADMIT Internal Medicine; ATTEND Internal Medicine